=== PATIENT | female | born 1980 | race Caucasian/White ===

== ENCOUNTER → 2019-02-10 | Outpatient (CLI) | payer OTHER ==
--- NOTE | 2019-02-10 14:55 | REP ---
CT temporal bones/IACs: 02/10/2019. Indication: Perforated tympanic membrane. Hearing loss . Comparison: None. Technique: Axial coronal imaging through the temporal bones were performed without IV IV contrast. Findings: The pars flaccida is not clearly delineated on the left. There is no significant soft tissue within the left middle ear cavity. The left ossicles appear intact. There is no evidence of semicircular canal dehiscence. The tegmen tympani appears intact. Sclerotic changes of the left mastoid temporal bone/air cells as well as opacification of the air cells suggest chronic inflammation. Right-sided canal wall down mastoidectomy is noted with residual/recurrent soft tissue within the surgical defect. There is no visualization of the ossicles on the right. Sclerotic changes of the right mastoid temporal bone are additionally noted, again suggesting chronic inflammation. The right-sided tegmen tympani appears intact. The visualized paranasal sinuses are clear. No CP angle abnormalities are detected. No significant ocular, intraorbital or intracranial abnormalities are detected. Impression: Suspected incomplete left tympanic membrane, particularly at the region of the pars flaccida. Please correlate with direct inspection. No significant abnormal soft tissue within the left middle ear cavity. 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 Right-sided mastoidectomy has been performed. Electronically Signed by Darrel Garcia DO 02/10/2019 02:47 P
== END ==
LOC: M RAD 13:34
PROVIDERS: ATTEND Otolaryngology
DX: H72.13 Attic perforation of tympanic membrane, bilateral (principal)